=== PATIENT | female | born 1985 | race Caucasian/White ===

== ENCOUNTER 2017-06-07 13:24 | Inpatient (IN) ==
--- NOTE | 2017-06-07 14:52 | Ultrasound Report ---
Exam: US OB limited Date: 06/07/2017 1:47 PM Indication: Leaking premature rupture membranes suspected AZAR Comparison: None Findings: The placenta is anterior with fetus in cephalic presentation. AZAR is 5.1 cm. Four-chamber heart view is demonstrated with heart rate of 133 bpm. Impression: 1. Low normal amniotic fluid index 5.1 cm. PROCEDURE INTERPRETED AT [facility] DEPARTMENT OF RADIOLOGY Final Report Signed by: Dr. Gian Wilson
[2017-06-07] MEDS ORDERED: BUTORPHANOL 2 MG/ML VIAL IV PRN (17:05)
[2017-06-07] MEDS ORDERED: ONDANSETRON 4 MG/2 ML VIAL IV PRN (17:05)
[2017-06-07] MEDS ORDERED: LACTATED RINGERS 1,000 ML IV PRN (17:05)
[2017-06-07] MEDS ORDERED: MEPERIDINE 50 MG/1 ML VIAL IV PRN (17:05)
[2017-06-07] MEDS ORDERED: diphenhydrAMINE 50 MG/1 ML VIAL IV PRN ×2 (17:08)
[2017-06-07] MEDS ORDERED: FAMOTIDINE 20 MG/2 ML VIAL IV ONE (17:08)
[2017-06-07] MEDS ORDERED: hydrOXYzine HCL 25 MG/1 ML VIAL IM PRN (17:08)
[2017-06-07] MEDS ORDERED: CITRIC ACID/SODIUM CITRATE 30 ML UDCUP PO ONE (17:08)
[2017-06-07] MEDS ORDERED: PROMETHAZINE 25 MG/1 ML VIAL IM ONE (17:08)
[2017-06-07] MEDS ORDERED: ePHEDrine 50 MG/ML AMP IV PRN (17:08)
--- NOTE | 2017-06-07 17:40 | History and Physical Update ---
History and Physical Update - Dictation Physical: refer to scanned H&P - Physical Exam Mental Status: alert and oriented Heart: regular rate and rhythm Lung: clear to auscultation Abdomen: within normal limits Vitals: within normal limits History and Physical Changes: at term with spontaneous labor. Has been seen Dr. Carpenter in clinic, see her records for details. Has had a history of an ectopic this has been completely uncomplicated by her statements.
[2017-06-07] MEDS ORDERED: OXYTOCIN/LR 20 UNIT/1,000 ML BAG IV ONE ×2 (17:50→21:17)
[2017-06-07 17:54] LABS: Basophils # 0.1 10*3/uL (0.0-0.2); Basophils % 0.4 % (0.0-0.8); Eosinophils % 0.2 % (0.00-10.9); Hemoglobin 12.3 GM/DL (12.0-16.0); Immature Granulocytes % 0.9 %; Immature Granulocytes Absolute 0.12 #; Lymphocytes # 2.1 10*3/uL (1.4-4.0); Lymphocytes % 14.9 % (21.3-54.2); Mean Corpuscular HGB Conc 35.1 GM/DL (32-36); Mean Corpuscular Hemoglobin 31 PG (27-34); Mean Corpuscular Volume 89.1 FL (87-102); Mean Platelet Volume 11.1 FL (9.6-12.0); Monocytes # 0.7 10*3/uL (0.11-0.8); Monocytes % 4.9 % (1.7-12.7); Neutrophils % 78.7 % (38.7-73.9); Platelet Count 281 T/CUMM (130-400); Red Blood Count 3.93 MC/CUMM (3.8-5.5); Red Cell Distribution Width 13.3 % (9.3-17.3)
[2017-06-07] MEDS: LACTATED RINGERS 1,000 ML IV SCH (18:00)
[2017-06-07] MEDS: fentaNYL 2 MCG/ROPIV 0.2% EPID 150 ML EPIDURAL SCH (18:39)
--- NOTE | 2017-06-07 21:35 | Operative Note ---
Date of procedure: 06/07/17 Pre-op diagnosis: at term, active labor Post-op diagnosis: same (With spontaneous vaginal delivery) Procedure: Spontaneous vaginal delivery The patient was prepped and drapped in the dorsal lithotomy position. Expulsive efforts were encouraged until the head was on the perineum. The perineum was supported with the left hand while the delivery of the head controlled by the right hand. The naseopharynx was suctioned with a bulb syringe as soon as the head delivered. The head was directed downward and the anterior shoulder delivered. The head was lifted and the posterior shoulder delivered. The was delivered to the hips and held in place while the umbilical cord was clamped and cut. The remainder of the was delivered and then transferred to the warmer. Cord blood was obtained and the placenta allowed to seperated spontaneously. The placenta was then delivered [place]. An intrauterine exam was done and pitocin administered due to transient atony. The cervix, vagina and perineum were examined and a midline laceration noted and repaired with 2-0 Vicryl. She was returned to the supine position and her recovery begun. Anesthesia: epidural Surgeon / Physician: Gian Perry Estimated blood loss: other (350 cc) Specimens: none sent Condition: stable Disposition: observation Results - Labs CBC & BMP: 06/07/17 17:31 Discharge Plan - Discharge Medications No Action Pnv No.95/Ferrous Fum/Folic AC [ Tablet] 1 tablet PO DAILY - Follow Up or Referral - Forms/Instructions
[2017-06-08] MEDS ORDERED: oxyCODONE/ACETAMINOPHEN 5-325 MG TABLET PO PRN (00:55)
[2017-06-08] MEDS: IBUPROFEN 800 MG TABLET PO PRN ×4 (01:02→23:54)
[2017-06-08 06:47] LABS: Basophils # 0.1 10*3/uL (0.0-0.2); Basophils % 0.4 % (0.0-0.8); Eosinophils % 0.1 % (0.00-10.9); Hematocrit 26.5 VOL% (35.7-47.0); Hemoglobin 9.3 GM/DL (12.0-16.0); Immature Granulocytes % 0.7 %; Immature Granulocytes Absolute 0.11 #; Lymphocytes # 2.5 10*3/uL (1.4-4.0); Mean Corpuscular HGB Conc 35.1 GM/DL (32-36); Mean Corpuscular Hemoglobin 31 PG (27-34); Mean Corpuscular Volume 89.2 FL (87-102); Mean Platelet Volume 10.5 FL (9.6-12.0); Monocytes % 6.6 % (1.7-12.7); Neutrophils # 12.1 10*3/uL (1.4-7.4); Neutrophils % 76.2 % (38.7-73.9); Platelet Count 255 T/CUMM (130-400); Red Blood Count 2.97 MC/CUMM (3.8-5.5); Red Cell Distribution Width 13.3 % (9.3-17.3); White Blood Count 15.8 T/CUMM (4-12)
[2017-06-08] MEDS ORDERED: DOCUSATE SODIUM 100 MG CAPSULE PO PRN (08:32)
[2017-06-08] MEDS: fentaNYL 2 MCG/ROPIV 0.2% EPID 150 ML EPIDURAL SCH (10:58)
[2017-06-08] MEDS: LACTATED RINGERS 1,000 ML IV SCH (11:00)
[2017-06-08] MEDS: MULTIVITAMIN (PRENATAL) TABLET PO SCH (11:09)
--- NOTE | 2017-06-08 12:33 | Anesthesia Post-Op ---
Anesthesia Post OP - Post Ansesthetic Evaluation Patient seen in post op: Yes Resp: within normal limits CV: within normal limits Mental: within normal limits Temp: within normal limits [id number]: within normal limits Nausea and Vomiting: within normal limits Pain: within normal limits
--- NOTE | 2017-06-08 13:21 | Progress Note ---
Assessment and Plan (1) Normal vaginal delivery of second Status: Acute Assessment and plan: Routine care. Current Visit: Yes Family Medicine PN Sub Interval history: Patient is doing well this morning without complaints. Exam (Progress Note) - Constitutional Vitals: Period Temp Pulse Resp BP Sys/Bright Pulse Ox Last 24 Hr 97.1 F-98.2 F 76-86 18-20 116-125/56-77 98-99 General appearance: no acute distress - Head Head exam: Present: normal inspection - Neck Neck exam: Present: normal inspection - Respiratory Respiratory exam: Present: clear to auscultation bilaterally. Absent: accessory muscle use - Cardiovascular Cardiovascular exam: Present: regular rate and rhythm - GI/Abdominal GI/Abdominal exam: Present: normal bowel sounds, soft. Absent: tenderness - Extremities Exam Extremities exam: Present: normal inspection - Back Exam Back exam: Present: normal inspection - Neurological Exam Neurological exam: Present: alert, oriented X3 - Psychiatric Psychiatric exam: Present: normal affect, normal mood - Skin Skin exam: Present: normal color, warm, dry Results - Labs CBC & BMP: 06/08/17 06:39
[2017-06-08] MEDS ORDERED: BENZOCAINE 20%/MENTHOL 0.5% SPRAY 56 GM CAN TOP PRN (19:33)
[2017-06-08] MEDS: DOCUSATE SODIUM 100 MG CAPSULE PO SCH (20:28)
[2017-06-08 22:00] LABS: Apearance,Urine CLOUDY (Clear); Bilirubin,Urine Negative (Negative); Blood, Urine Large mg/dL (Negative); Glucose,Urine (UA) Negative (Negative); Ketones,Urine Negative (Negative); Mucus,Urine Occasional /LPF (Occasional); Nitrite,Urine Negative (Negative); Protein,Urine 30 MG/DL; RBC,Urine 947 /HPF (0-4); Squamous Epithelial Cell,Urine Occasional /HPF (0-10); Urine Color Yellow (Yellow); Urine Specific Gravity 1.011 (1.001-1.035); Urine Urobilinogen < 2.0 EU/DL (0.2-1.0); WBC,Urine 41 /HPF (0-6)
[2017-06-09] MEDS: DOCUSATE SODIUM 100 MG CAPSULE PO SCH ×2 (07:52→14:19)
[2017-06-09] MEDS: MULTIVITAMIN (PRENATAL) TABLET PO SCH ×2 (07:53→14:19)
[2017-06-09] MEDS: IBUPROFEN 800 MG TABLET PO PRN (07:53)
[2017-06-09 08:19] VITALS: BP 121/73
[2017-06-09] MEDS ORDERED: DIPH/TET/ACEL PERT BOOSTER VACCINE 0.5 ML VIAL IM ONE (10:21)
== END 2017-06-09 11:25 | disposition home or self-care (01) | DRG 775 ==
LOC: N.LDOUT 13:24 → N.LD 13:30 → N.OB 06-08 19:00
PROVIDERS: ADMIT Obstetrics & Gynecology; ATTEND Obstetrics & Gynecology